=== PATIENT | female | born 1990 ===

== ENCOUNTER 2023-07-20 15:24 | Emergency (ER) | payer OTHER, SELFPAY ==
[2023-07-20 16:37] LABS: BHCG - Serum Negative (NEGATIVE); Pregs Control Background? CLEAR/WHITE (CLR/WHITE); Pregs Control Bar Appear? YES (CONTROL BAR)
[2023-07-20] MEDS ORDERED: Ketorolac Tromethamine 30 MG/ML VIAL ONE (16:41)
== END 2023-07-20 17:00 | disposition home or self-care (01) ==
LOC: ERS 15:24
DX: M54.50 Low back pain, unspecified (principal); M25.511 Pain in right shoulder; M54.6 Pain in thoracic spine; F17.210 Nicotine dependence, cigarettes, uncomplicated
CPT/HCPCS: 36415; 72070; 72100; 84703; 96372; J1885

== ENCOUNTER 2024-09-10 19:09 | Emergency (ER) | payer SELFPAY | END 2024-09-10 21:57 | disposition home or self-care (01) | LOC: ERS 19:09 | DX: H66.91 Otitis media, unspecified, right ear (principal); F17.210 Nicotine dependence, cigarettes, uncomplicated | CPT/HCPCS: 99282 ==